=== PATIENT | male | born 1975 | race African-American/Black ===

== ENCOUNTER 2023-05-27 02:52 | Day surgery (SDC) | payer BC, SELFPAY ==
[2023-05-14 13:34] VITALS: BMI 34.3
[2023-05-27 10:02] VITALS: BP 141/104; PULSE 55; RESP 19; TEMP 36.4; O2SAT 100
[2023-05-27 10:19] LABS: Glucose Point of Care 205 mg/dl (65-105)
[2023-05-27] MEDS: LACTATED RINGERS 1,000 ML 150 ML IV CONT (10:19)
--- NOTE | 2023-05-27 10:25 | WPDANESEPPF ---
Anes - Initial Pre Proc Eval Procedure: Operation Date: 05/27/23 11:00 Proposed Procedures p Colonoscopy - Anshul Bowman MD Date/Time: 05/27/23 10:25 Surgeon: Anshul Bowman MD Pre Op Diagnosis: diverticulosis Patient Data Age: 47 Gender: M Height: 1.85 m Weight: 119 kg Last Vital Signs Temp 97.6 F 05/27/23 10:02 Pulse 55 L 05/27/23 10:02 Resp 19 05/27/23 10:02 BP 141/104 H 05/27/23 10:02 Pulse Ox 100 05/27/23 10:02 O2 Del Method Room Air 05/27/23 10:02 Allergies Allergy/AdvReac Type Severity Reaction Status Date / Time No Known Allergies Allergy Unverified 05/27/23 10:01 Home Medications Medication Instructions Recorded Confirmed Type empagliflozin 10 mg tablet 10 mg PO DAILY #90 tabs 03/06/22 05/14/23 Rx (Jardiance) atorvastatin 40 mg tablet 40 mg PO DAILY #90 tabs 04/29/23 05/14/23 Rx flash glucose sensor (FreeStyle #2 ea 04/29/23 05/14/23 Rx Jose A 14 Day Sensor kit) hydralazine 10 mg tablet 10 mg PO TID #360 tabs 04/29/23 05/14/23 Rx insulin glargine 100 unit/mL (3 15 unit (0.15 mL) subcut QAM 3 04/29/23 05/14/23 Rx mL) subcutaneous pen (Lantus months #13.5 mL Solostar U-100 Insulin) irbesartan 300 1 tablet PO DAILY #90 tabs 04/29/23 05/14/23 Rx mg-hydrochlorothiazide 12.5 mg tablet metformin 500 mg tablet,extended 1,000 mg PO DAILY #60 tabs 04/29/23 05/14/23 Rx release 24 hr pen needle, diabetic 32 gauge x #100 ea 04/29/23 05/14/23 Rx /32 (1st Tier Unifine Pentips Plus) amlodipine 10 mg tablet 10 mg PO DAILY 05/14/23 05/14/23 History tadalafil 5 mg tablet (Cialis) 5 mg PO DAILY PRN Sexual Activity 05/14/23 05/14/23 History Laboratory Tests 05/27/23 10:14 POC Capillary Glucose 205 H mg/dl (65-105) Patient hx anesthesia problems: none Family hx anesthesia problems: none Results Review: All pre-operative results and documents have been reviewed as part of the pre-operative evaluation. [facility] Past Medical History Medical History Benign essential HTN Diabetes mellitus Diverticulitis Diverticulosis Hyperlipidemia Family History Family History Father Cerebrovascular accident Mother Diabetes mellitus Hypertension Mother , diabetes with ESCKD Diabetes mellitus Social History Social History (Updated 04/29/23 @ 09:38 by Annia Cramer) Social History: Single Smoking status: Never smoker Second hand tobacco smoke exposure: No Alcohol intake: current Drinks per week: 5 Alcohol use details: 2 drinks per month Substance use: never Substance use type: does not use Lack of Transportation: No Lack of Food: Never True Current Housing: I Have Housing Concerned About Future Housing: No Difficulty Paying Gas/Electric Bills: No Difficulty Paying for Meds: No Currently Unemployed: No Education: Decline to Answer Difficulty w/ Childcare or Family Care: No Living arrangements: with family Occupation/Education: occupation Gender identity (if verbalized by the patient): Male Sexual Orientation (if Verbalized by the Patient): Straight or Heterosexual Spiritual care concerns: No Anes - Eval Final PreProcedure Day of Procedure 05/27/23 10:25 Patient weight: obese Heart: regular rate and rhythm Lungs: clear to auscultation Airway: Mallampati scale class II Neurological: alert and oriented Last oral intake: >/= 8 hours ASA classification: III Emergent: no Anesthetic plan: proceed Anesthesia type and monitoring: general GIVS and standard monitoring Results Review: All pre-operative results and documents have been reviewed as part of the pre-operative evaluation. Informed Consent: The patient's anesthetic plan and its attendant risks and benefits were discussed with the patient/family/POA. Questions were solicited and answers provided to the satisfac
--- NOTE | 2023-05-27 10:44 | PM.HPGS ---
History of Present Illness History of Present Illness Consent: Risks, benefits, and alternatives have been discussed and questions answered. Patient agrees to proceed with procedure. Chief complaint: neoplasia screening Narrative: Gerald Redmond is a 47 year old male Presents for screening colonoscopy. Patient's current weight appetite and bowel movements are normal. Patient denies any abdominal pain. He has had no bleeding. Family history noncontributory. Patient has past medical history of diabetes. He also has a history of diverticular disease 5 years ago. He has had no recent bouts of diverticulitis nor pain. Bowel habits are described as normal with no bleeding. Family history noncontributory. Review of Systems Review of Systems: Review of systems noncontributory. [facility] Past Medical History Medical History Benign essential HTN Diabetes mellitus Diverticulitis Diverticulosis Hyperlipidemia Family History Family History Father Cerebrovascular accident Mother Diabetes mellitus Hypertension Mother , diabetes with ESCKD Diabetes mellitus Social History Social History (Updated 04/29/23 @ 09:38 by Annia Cramer) Social History: Single Smoking status: Never smoker Second hand tobacco smoke exposure: No Alcohol intake: current Drinks per week: 5 Alcohol use details: 2 drinks per month Substance use: never Substance use type: does not use Lack of Transportation: No Lack of Food: Never True Current Housing: I Have Housing Concerned About Future Housing: No Difficulty Paying Gas/Electric Bills: No Difficulty Paying for Meds: No Currently Unemployed: No Education: Decline to Answer Difficulty w/ Childcare or Family Care: No Living arrangements: with family Occupation/Education: occupation Gender identity (if verbalized by the patient): Male Sexual Orientation (if Verbalized by the Patient): Straight or Heterosexual Spiritual care concerns: No Meds Home Medications and Allergies Home Medications Medication Instructions Recorded Confirmed Type empagliflozin 10 mg tablet 10 mg PO DAILY #90 tabs 03/06/22 05/14/23 Rx (Jardiance) atorvastatin 40 mg tablet 40 mg PO DAILY #90 tabs 04/29/23 05/14/23 Rx flash glucose sensor (FreeStyle #2 ea 04/29/23 05/14/23 Rx Jose A 14 Day Sensor kit) hydralazine 10 mg tablet 10 mg PO TID #360 tabs 04/29/23 05/14/23 Rx insulin glargine 100 unit/mL (3 15 unit (0.15 mL) subcut QAM 3 04/29/23 05/14/23 Rx mL) subcutaneous pen (Lantus months #13.5 mL Solostar U-100 Insulin) irbesartan 300 1 tablet PO DAILY #90 tabs 04/29/23 05/14/23 Rx mg-hydrochlorothiazide 12.5 mg tablet metformin 500 mg tablet,extended 1,000 mg PO DAILY #60 tabs 04/29/23 05/14/23 Rx release 24 hr pen needle, diabetic 32 gauge x #100 ea 04/29/23 05/14/23 Rx /32 (1st Tier Unifine Pentips Plus) amlodipine 10 mg tablet 10 mg PO DAILY 05/14/23 05/14/23 History tadalafil 5 mg tablet (Cialis) 5 mg PO DAILY PRN Sexual Activity 05/14/23 05/14/23 History Allergies Allergy/AdvReac Type Severity Reaction Status Date / Time No Known Allergies Allergy Unverified 05/27/23 10:01 Vital Signs Vital Signs - 24 hr 05/27/23 10:02 Temperature 97.6 F Pulse Rate 55 L Respiratory Rate 19 Blood Pressure 141/104 H Pulse Oximetry 100 Oxygen Delivery Room Air Exam Narrative: Physical exam reveals patient to be alert. Vital signs stable. HEENT exam is unremarkable. Patient is anicteric. Lungs are clear to auscultation and percussion. Heart is without murmur or extra sounds. Abdomen bowel sounds are present soft nontender with no organomegaly. Digital external rectal exam is normal. Assessment and Plan Assessment and plan (1) Colon cancer screening: Code(s): Z12.11 - Encounter for screen
[2023-05-27] MEDS: SIMETHICONE ORAL SUSPENSION 20 MG/0.3 ML 30 ML BOTTLE 0.6 ML IRRIGATION (10:58)
[2023-05-27 11:08] VITALS: BP 132/85; PULSE 73; RESP 17; O2SAT 100
[2023-05-27 11:18] VITALS: BP 147/103; PULSE 68; RESP 17; O2SAT 98
[2023-05-27 11:28] VITALS: BP 155/103; PULSE 57; RESP 19; O2SAT 97
--- NOTE | 2023-05-27 11:43 | SUR.PHASEII ---
Pt blood pressure elevated 155/103. Dr. Sims anesthesiologist notified orders for pt to resume blood pressure medications on discharge. Pt and fiance state understanding.
[2023-05-27 11:44] LABS: Glucose Point of Care 191 mg/dl (65-105)
== END 2023-05-27 11:41 | disposition home or self-care (01) ==
PROVIDERS: PCP Family Medicine; Visit Provider Internal Medicine Gastroenterology
PROC: 0DJD8ZZ Inspection of Lower Intestinal Tract, Via Natural or Artificial Opening Endoscopic (ICD-10-PCS; CPT 45378; principal; 2023-05-27 11:00)
DX: Z12.11 Encounter for screening for malignant neoplasm of colon (principal); K63.5 Polyp of colon; I10 Essential (primary) hypertension; E11.9 Type 2 diabetes mellitus without complications; E78.5 Hyperlipidemia, unspecified; Z79.4 Long term (current) use of insulin; Z79.84 Long term (current) use of oral hypoglycemic drugs; E66.9 Obesity, unspecified; Z68.34 Body mass index [BMI] 34.0-34.9, adult
CPT/HCPCS: 45385; 82948; 88305; J2704; J7120

== ENCOUNTER 2025-10-17 08:55 | Outpatient (CLI) | payer BC, SELFPAY ==
--- OUTSIDE RECORDS SUMMARY | 2025-10-17 09:32 | XMS_ITS | Clinical Summary ---
Author Organization [facility] on Address [address] [place] [address] Phone Care Team Providers Care Laundry Helper Name Role Phone Raúl Rios DO Primary Care Provider [phone] Allergies No known active allergies Medications olmesartan (BENICAR) 20 mg Oral Tab Take 20 mg by mouth daily. Active metformin (GLUCOPHAGE) 500 mg Oral Tab Take 500 mg by mouth daily. Active glipiZIDE (GLUCOTROL) 5 mg Oral Tab Take 5 mg by mouth daily. Active atorvastatin (LIPITOR) 10 mg Oral Tab Take 10 mg by mouth Daily LATE. Active GLIMEPIRIDE (AMARYL PO) Take by mouth daily. 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 Gender Identity Not on file Sexual Orientation Not on file Last Filed Vital Signs Vital Sign Reading Time Taken Comments Blood Pressure 159/102 11/12/2009 2:39 PM SEED DISTRICT SALES MANAGER Pulse 95 11/12/2009 2:39 PM SEED DISTRICT SALES MANAGER Temperature 37 C (98.6 F) 11/12/2009 10:07 AM SEED DISTRICT SALES MANAGER Respiratory Rate 18 11/12/2009 2:39 PM SEED DISTRICT SALES MANAGER Oxygen Saturation 95% 11/12/2009 2:39 PM SEED DISTRICT SALES MANAGER Inhaled Oxygen Concentration - - Weight 133.8 kg (295 lb) 11/12/2009 10:07 AM SEED DISTRICT SALES MANAGER Height 185.4 cm (6' 1) 11/12/2009 10:07 AM SEED DISTRICT SALES MANAGER Body Mass Index 38.92 11/12/2009 10:07 AM SEED DISTRICT SALES MANAGER Plan of Treatment Health Maintenance Due Date Last Done Comments DTAP/TDAP/TD VACCINES (1 - Tdap) 1992 HEPATITIS B VACCINES (1 of 3 - 19+ 3-dose series) 11/17 COLORECTAL SCREENING 2018 Colorectal Cancer Screening 2018 FIT-DNA Q 3 years 2018 FIT/FOBT Q 1 year 2018 Flex Sig/CT Colonography Q 5 years 2018 ZOSTER VACCINE (1 of 2) 2023 INFLUENZA VACCINE (#1) 2025 Care Teams Laundry Helper Relationship Specialty Start Date End Date Raúl Rios DO [address] [place] [id number] PCP - General One Piece Expansion Maker Hand 05/21/10
--- OUTSIDE RECORDS SUMMARY | 2025-10-17 09:32 | XMS_ITS | Encounter Summary ---
Author Organization [facility] Address 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 Gender Identity Not on file Sexual Orientation Not on file documented as of this encounter Plan of Treatment Not on file documented as of this encounter Procedures Procedure Name Priority Date/Time Associated Diagnosis Comments RUBEOLA IGG Routine 07/19/2008 8:00 AM CDT RUBELLA IGG Routine 07/19/2008 8:00 AM CDT MUMPS IGG ANTIBODY Routine 07/19/2008 8: 00 AM CDT documented in this encounter Results * RUBELLA IGG (07/19/2008 8:00 AM CDT) RUBELLA IGG 3.23 EIA Value [facility] Comment: EIA VALUE EXPLANATION OF TEST RESULTS --------- <0.91 NEGATIVE - NO RUBELLA IGG ANTIBODY DETECTED. 0.91 - 1.09 EQUIVOCAL > OR = 1.10 POSITIVE - RUBELLA IGG ANTIBODY DETECTED. THE PRESENCE OF RUBELLA IGG ANTIBODY SUGGESTS IMMUNIZATION OR PAST OR CURRENT INFECTION WITH RUBELLA VIRUS. Lab test performed by: [employer] [place] [address] CRAIG LUCAS MD Blood specimen (specimen) 07/19/2008 8:00 AM CDT 07/19/2008 8:23 PM CDT Woody Shafer MD CHEMISTRY ORDERABLES Final Result Performing Organization Address [facility] de Phone Number INTERFACE SYSTEM Refer to clinic/hospital department [facility] CLIA# [id number] [address] [place] [address] * MUMPS IGG ANTIBODY (07/19/2008 8:00 AM CDT) MUMPS IGG AB 4.17 EIA Value [facility] Comment: EIA VALUE EXPLANATION OF TEST RESULTS --------- < OR = 0.90 NEGATIVE - NO MUMPS IGG ANTIBODY DETECTED 0.91 - 1.09 EQUIVOCAL > OR = 1.10 POSITIVE - MUMPS IGG ANTIBODY DETECTED A POSITIVE RESULT INDICATES THAT THE PATIENT HAS ANTIBODY TO MUMPS VIRUS. IT DOES NOT DIFFERENTIATE BETWEEN AN ACTIVE OR PAST INFECTION. THE CLINICAL DIAGNOSIS MUST BE INTERPRETED IN CONJUNCTION WITH THE CLINICAL SIGNS AND SYMPTOMS OF THE PATIENT. Lab test performed by: [facility] [id number] [address] CRAIG LUCAS MD Blood specimen (specimen) 07/19/2008 8:00 AM CDT 07/19/2008 8:23 PM CDT us Woody Shafer MD CHEMISTRY ORDERABLES Final Result Performing Organization Address [facility] de Phone Number INTERFACE SYSTEM Refer to clinic/hospital department [facility] CLIA# [id number] [address] [place] [address] * RUBEOLA IGG (07/19/2008 8:00 AM CDT) RUBEOLA IGG 3.11 EIA Value [facility] Comment: EIA VALUE EXPLANATION OF TEST RESULTS --------- < OR = 0.90 NEGATIVE - NO RUBEOLA (MEASLES) IGG ANTIBODY DETECTED 0.91 - 1.09 EQUIVOCAL > OR = 1.10 POSITIVE - RUBEOLA (MEASLES) IGG ANTIBODY DETECTED POSITIVE RESULTS SUGGEST RECENT OR PREVIOUS INFECTION WITH MEASLES (RUBEOLA) VIRUS AND IMPLY IMMUNITY. PATIENTS EXHIBITING EQUIVOCAL RESULTS SHOULD BE RETESTED IN ONE MONTH, IF CLINICALLY INDICATED. Lab test performed by: [facility] [id number] [place] [address] CRAIG LUCAS MD Blood specimen (specimen) 07/19/2008 8:00 AM CDT 07/19/2008 8:23 PM CDT Woody Shafer MD CHEMISTRY ORDERABLES Final Result INTERFACE SYSTEM Refer to clinic/hospital department [facility] CLIA# [id number] [address] [place] [address] documented in this encounter Visit Diagnoses Not on filedocumented in this encounter Care Teams Certified Phlebotomy Technician Relationship Specialty Start Date End Date Raúl Rios DO [address] [place] [place] [phone] PCP - General Product Tester Fiberglass 05/21/10 documented as of this encounter
--- OUTSIDE RECORDS SUMMARY | 2025-10-17 09:32 | XMS_ITS | Clinical Summary ---
Author Organization [facility] [employer] Address [address] [place] [address] Care Team Providers Care Ground Crew Linesman Name Role Phone Daimond Tariq MD Primary Care Provider [phone] Source Comments [facility] [employer],non-owned Affiliates and Associated Physician Practices is amultiple site organization consisting of ambulatory clinics and hospital sitesin [place], [place], [place] and [place]. This disclosure is being madepursuant to the Care Everywhere program and may not contain all information available regarding this patient. Last updated 18.[employer] Allergies No known active allergies Medications * Be aware that medications may not be up to date on this document. Alwaysverify current medications with the patient. metFORMIN (GLUCOPHAGE) 1000 MG tablet Take 1,000 mg by mouth 2 times daily with morning and evening meal. Active sitaGLIPtin (JANUVIA) 100 MG tablet Take 100 mg by mouth once daily. Active lovastatin (MEVACOR) 10 MG tablet Take 10 mg by mouth at bedtime. Unsure of dose Active lisinopril (PRINIVIL; ZESTRIL) 10 MG tablet Take 1 tablet by mouth once daily Unsure of dose 03/13/2020 Active amLODIPine (NORVASC) 5 MG tablet Take 1 tablet by mouth once daily 03/13/2020 Active Active Problems Problem Noted Date Diagnosed Date Abdominal pain, epigastric 03/11/2020 Elevated lipase 03/11/2020 Essential hypertension 03/11/2020 Social History Tobacco Use Types Packs/Day Years Used Date Smoking Tobacco: Never Smokeless Tobacco: Never Alcohol Use Standard Drinks/Week Comments Yes 0 (1 standard drink = 0.6 oz pur e alcohol) social Sex and Gender Information Value Date Recorded Sex Assigned at Not on file Legal Sex Male 5:03 AM CLINICAL WRITER Gender Identity Male 12/10/2017 10:21 AM CLINICAL WRITER Sexual Orientation Not on file Last Filed Vital Signs Vital Sign Reading Time Taken Comments Blood Pressure 139/96 03/12/2020 7:38 AM CDT Pulse 72 03/12/2020 7:38 AM CDT Temperature 36.9 C (98.5 F) 03/12/2020 7:38 AM CDT Respiratory Rate 18 03/12/2020 7:38 AM CDT Oxygen Saturation 94% 03/12/2020 7:38 AM CDT Inhaled Oxygen Concentration - - Weight 115.2 kg (254 lb) 03/11/2020 11:54 AM CDT Height 185.4 cm (6' 1) 03/11/2020 11:54 AM CDT Body Mass Index 33.51 03/11/2020 11:54 AM CDT Plan of Treatment Health Maintenance Due Date Last Done Comments COLOGUARD (AGES 45-75) - COL ON CA SCREENING 1973 COLON MONITORING 1973 COLONOSCOPY - COLON CA SCREENING 1973 CT COLONOGRAPHY - COLON CA SCREENING 1973 Colorectal Cancer Screening 1973 FIT - COLON CA SCREENING 1973 FLEX SIG - COLON CA SCREENING 1973 HIV SCREENING 1988 HEPATITIS C SCREENING 12/11/1991 DTAP/TDAP/TD VACCINES (1 - Tdap) 1992 HEPATITIS B VACCINE (1 of 3 - 19+ 3-dose series) 1992 PNEUMOCOCCAL VACCINE 50+ (1 of 1 - PCV) 2023 ZOSTER VACCINE (1 of 2) 2023 DEPRESSION SCREENING 11/15/2024 COVID-19 VACCINE ( - 2024-2 6 season) 2025 INFLUENZA VACCINE (#1) 2025 HIB VACCINE Aged Out No longer eligi ble based on patient's age to complete this topic HPV VACCINE Aged Out No longer eligi ble based on patient's age to complete this topic MENINGOCOCCAL (Group B) VACC INE SHARED DECISION-MAKING Aged Out No longer eligibl e based on patient's age to complete this topic MENINGOCOCCAL GROUPS A/C/Y/W VACCINE Aged Out No longer eligible b ased on patient's age to complete this topic Insurance [facility] Advance Directives * Full Code (Latest Code Status on File) Date Activated Date Inactivated Comments 03/11/2020 12:35 AM 03/12/2020 2:29 PM Care Teams Ground Crew Linesman Relationship Specialty Start Date End Date Diamond Tariq MD [address] [place] [phone] PCP - General Family Medicine 03/10/20
[2025-10-17 09:46] LABS: Alanine Aminotransferase 45 U/L (6-50); Albumin Level 4.4 g/dL (3.5-5.1); Alkaline Phosphatase 58 U/L (38-126); Anion Gap 6 mmol/L (4-12); Aspartate Amino Transferase 37 U/L (17-59); Bilirubin,Total 1.1 mg/dL (0.2-1.3); Blood Urea Nitrogen 13 mg/dL (9-20); Calcium 9.4 mg/dL (8.4-10.2); Carbon Dioxide 29 mmol/L (22-30); Chloride 104 mmol/L (98-107); Estimated Glomerular Filt Rate > 60; Glucose 166 mg/dL (65-110); Potassium 3.5 mmol/L (3.4-5.0); Sodium 139 mmol/L (137-145); Total Protein 7.7 g/dL (6.3-8.2)
[2025-10-17 10:10] LABS: Hemoglobin A1C 7.7 % (<5.7)
== END 2025-10-17 08:56 | disposition home or self-care (01) ==
LOC: ANHLAB 08:56
PROVIDERS: PCP Family Medicine; Visit Provider Student in an Organized Health Care Education/Training Program
DX: E11.22 Type 2 diabetes mellitus with diabetic chronic kidney disease (principal); Z79.4 Long term (current) use of insulin; I10 Essential (primary) hypertension
CPT/HCPCS: 36415; 80053; 83036